=== PATIENT | male | born 1995 | race Hispanic/Latino ===

== ENCOUNTER 2016-03-22 03:33 | Emergency (ER) | payer OTHER ==
[~2016-03-22] VITALS: Ht 182.9 cm; Wt 95.7 kg
[~2016-03-22 03:33] MED LIST: ALBUTEROL 3 ML3 ML INH; ALBUTEROL0.63 MG/1 INH/SOL; AMOXICILLIN500 M2 PO; AMOXIL 875 MG875 MG PO; AUGMENTIN 875 M1 TAB PO; BLM PO; CLOTRIMAZOLE-BE15 GM TOP; HYDROCORTISONE59 ML TOP; IBUPROFEN600 M1 PO; IBUPROFEN800 M1 PO; LIORESAL 10MG T10 MG PO; LOTRIMIN CR1 %/45 GM TOP; LOTRISONE CREAM15 GM TOP; MOTRIN 600 MG600 MG PO; MOTRIN CHI100 MG/5 M PO; MOTRIN600 MG PO; NASONEX0.05 MG/Ac NAS; OXYCODONE-ACET1 EACH PO; PERCOCET 325 MG1 TA2 PO; PREDNISONE 20MG20 MG PO; PREDNISONE10 MG PO; PRILOSEC OTC20 MG PO; PROAIR HFA0.09 MG/Ac INH; PROAIR HFA8.5 GM INH; SYMBICORT 160/41 PUF INH; TESSALON PERLE100 MG PO; TRAMADOL50 MG PO
[2016-03-22 03:58] VITALS: BP 147/83
--- NOTE | 2016-03-22 04:57 | ED GENERAL ADULT ---
History of Present Illness General Chief Complaint: Skin Rash/ Abcess Stated Complaint: RASH TO GROIN AREA X'S 1 WK Source: patient Exam Limitations: no limitations Vital Signs & Intake/Output Vital Signs & Intake/Output Vital Signs Date Time Temp Pulse Resp B/P Pulse O2 O2 Flow FiO2 Ox Delivery Rate 03/22 0358 97.7 73 18 147/83 99 Room Air Allergies Coded Allergies: shrimp (Severe, ANAPHYLAXIS 01/12/16) cat dander (ITCHY AND WATERY EYES FROM CAT HAIR/DANDER 01/12/16) Reconcile Medications Albuterol Sulfate (Proair Hfa) 8.5 GM HFA.AER.AD 2-4 INH INH Q6P PRN ASTHMA Albuterol Sulfate 0.63 MG/3 ML VIAL.NEB 1 Vial INH/LD Q6P PRN ASTHMA Amoxicillin 500 MG CAPSULE 1 CAP PO TID ANTIBIOTIC, INFECTION (Reported) Clotrimazole (Lotrimin AF) 1 % CREAM..G. 1 RODRIGO TOP TID jock itch apply to affected area(s) x 7 days Clotrimazole/Betamethasone Dip (Clotrimazole-Betamethasone Crm) 1 %-0.05 % CREAM..G. 1 RODRIGO TOP BID PRN RASH apply to affected area(s) Hydrocortisone 2.5 % LOTION 1 RODRIGO TOP BID RASH apply to affected area(s) Ibuprofen 800 MG TABLET 1 TAB PO TID PRN PAIN/SWELLING Nystatin 1 BILLION UNIT POWDER.EA. 1 RODRIGO TOP TID JOCK ITCH X 7 DAYS Oxycodone HCl/Acetaminophen (Oxycodone-Acetaminophen 5-325) 5 MG-325 MG TABLET 1 TAB PO BIDP PRN PAIN (Reported) Triage Note: PT TO ED C/O RASH IN GROIN AREA FOR ONE WEEK. DENIES PAIN, DISCHARGE, FEVER AND CHILLS Triage Nurses Notes Reviewed? yes Onset: Gradual Duration: day(s):, waxing and waning Timing: recent history Injury Environment: home Severity: mild Modifying Factors: Worsens With: other (worse w/itching). Associated Symptoms: itching around penis HPI: 21-year-old gentleman presents with itching in groin area. He states that in the glans area of his penis he has a red itchy rash. He has no penile discharge or dysuria. He is otherwise well and has no other concerns. Past History Travel History Traveled to [place] past 21 day No Medical History Any Pertinent Medical History? see below for history Neurological: NONE EENT: NONE Cardiovascular: NONE Respiratory: asthma Gastrointestinal: NONE Hepatic: NONE Renal: NONE Musculoskeletal: NONE Psychiatric: NONE Endocrine: NONE Blood Disorders: NONE Cancer(s): NONE CAR REPAIRER HELPER/Reproductive: NONE Surgical History Surgical History: foot surgery Psychosocial History What is your primary language Arabic Tobacco Use: Never used Family History Hx Contributory? No Review of Systems Review of Systems Constitutional: Reports: no symptoms. EENTM: Reports: no symptoms. Respiratory: Reports: no symptoms. Cardiovascular: Reports: no symptoms. GI: Reports: no symptoms. Genitourinary: Reports: no symptoms. Musculoskeletal: Reports: no symptoms. Skin: Reports: no symptoms. Neurological/Psychological: Reports: no symptoms. Hematologic/Endocrine: Reports: no symptoms. Immunologic/Allergic: Reports: no symptoms. All Other Systems: Reviewed and Negative Physical Exam Physical Exam General Appearance: well developed/nourished, no apparent distress Head: atraumatic Eyes: Bilateral: normal appearance. Ears, Nose, Throat: normal pharynx Respiratory: normal breath sounds Cardiovascular: regular rate/rhythm Gastrointestinal: normal bowel sounds Extremities: normal inspection Neurologic/Psych: no motor/sensory deficits Comments: Genitalia exam reveals an erythematous rash beneath the foreskin of his penis consistent with a fungal infection. There are no ulcerations. No penile discharge. Core Measures ACS in differential dx? No CVA/TIA Diagnosis: No Severe Sepsis Present: No Septic Shock Present: No Progress Differential Diagnoses I considered the following diagnoses in my evaluation of the patient: Yeast infection versus other. I doubt STI's Plan of Care: See below Initial ED EKG: none Departure Departure Disposition: HOME OR SELF CARE Condition: Stable Clinical Impression Primary Impression: Jock itch Referrals: BRIAN SAM,ESTEPHANIA (PCP/Family) Departure Forms: Customer Survey General Discharge Information Prescriptions: Current Visit Scripts Clotrimazole (Lotrimin AF) 1 RODRIGO TOP TID #24 GM apply to affected area(s) x 7 days Nystatin 1 RODRIGO TOP TID #1 BOT X 7 DAYS Comments Discussed at length the patient. We'll give trial of Lotrimin and a statin. Critical Care Note Critical Care Note Critical Care Time: non-applicable
[2016-03-22] MEDS ORDERED: LOTRIMIN AF12 GM TOP (05:00)
[2016-03-22] MEDS ORDERED: NYSTATIN1 EAC8 TOP (05:00)
== END 2016-03-22 05:24 ==
LOC: ERH 03:33
DX: B35.6 Tinea cruris (principal)

== ENCOUNTER 2016-06-24 02:44 | Emergency (ER) | payer OTHER ==
[~2016-06-24 02:44] MED LIST changes: +LOTRIMIN AF12 GM TOP; +NYSTATIN1 EAC8 TOP
--- NOTE | 2016-06-24 03:15 | ED GI/GU/ABDOMINAL COMPLAINT ---
History of Present Illness General Chief Complaint: Male Genitourinary Problems Stated Complaint: " I HAVE A RASH ON MY GENITAL AREA" Source: patient Exam Limitations: no limitations Vital Signs & Intake/Output Vital Signs & Intake/Output . Allergies Coded Allergies: shrimp (Severe, ANAPHYLAXIS 06/24/16) cat dander (ITCHY AND WATERY EYES FROM CAT HAIR/DANDER 06/24/16) Reconcile Medications Clotrimazole (Lotrimin AF) 1 % CREAM..G. 1 RODRIGO TOP TID jock itch apply to affected area(s) x 7 days Clotrimazole/Betamethasone Dip (Clotrimazole-Betamethasone Crm) 1 %-0.05 % CREAM..G. 1 RODRIGO TOP BID PRN RASH apply to affected area(s) Hydrocortisone 2.5 % LOTION 1 RODRIGO TOP BID RASH apply to affected area(s) Ibuprofen 800 MG TABLET 1 TAB PO TID PRN PAIN/SWELLING Nystatin 1 BILLION UNIT POWDER.EA. 1 RODRIGO TOP TID JOCK ITCH X 7 DAYS Triage Nurses Notes Reviewed? yes Onset: Gradual Duration: day(s): Timing: recent history Quality/Severity: burning Location: penile shaft Radiation: no radiation Activities at Onset: "I go to the gym and work out.... My privates get sweaty." Sexually Active: Yes Last Time You Were Sexual: less than 2 months ago Modifying Factors: Worsens With: other (itching). Associated Symptoms: itchy HPI: 21-year-old gentleman health presents with itching and a red rash on his penile shaft. He states that he goes to the gym a lot and he gets sweaty in his groin area. He states in the past he had similar symptoms which improved with nystatin powder and Lotrimin cream. He states this is exactly the same as before. Is sexually active with a single partner. He has no penile discharge or urinary burning. He is otherwise well and has no other concerns. Past History Medical History Any Pertinent Medical History? 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 No Review of Systems Review of Systems Constitutional: Reports: no symptoms. EENTM: Reports: no symptoms. Respiratory: Reports: no symptoms. Cardiovascular: Reports: no symptoms. GI: Reports: no symptoms. Genitourinary: Reports: no symptoms. Musculoskeletal: Reports: no symptoms. Skin: Reports: no symptoms. Neurological/Psychological: Reports: no symptoms. Hematologic/Endocrine: Reports: no symptoms. Immunologic/Allergic: Reports: no symptoms. All Other Systems: Reviewed and Negative Physical Exam Physical Exam General Appearance: well developed/nourished, no apparent distress Head: atraumatic, normal appearance Eyes: Bilateral: normal appearance. Ears, Nose, Throat, Mouth: hearing grossly normal Neck: normal inspection Respiratory: normal breath sounds Gastrointestinal: normal bowel sounds, soft Male Genitals: erythematous rash on penile shaft w/ t. cruris Extremities: normal range of motion Neurologic/Psych: no motor/sensory deficits, awake, alert, oriented x 3 Core Measures ACS in differential dx? No Severe Sepsis Present: No Septic Shock Present: No Progress Differential Diagnosis: tinea cruris vs janes vs other. Plan of Care: gave rx for lotrimin and nystatin Initial ED EKG: none Departure Departure Disposition: HOME OR SELF CARE Condition: Stable Clinical Impression Primary Impression: Jock itch Referrals: ESTEPHANIA TORRES MD (PCP/Family) Departure Forms: Customer Survey General Discharge Information Prescriptions: Current Visit Scripts Clotrimazole (Lotrimin AF) 1 RODRIGO TOP TID #24 GM apply to affected area(s) x 7 days Nystatin 1 RODRIGO TOP TID #1 BOT X 7 DAYS
[2016-06-24] MEDS ORDERED: LOTRIMIN AF12 GM TOP (03:32)
[2016-06-24] MEDS ORDERED: NYSTATIN1 EAC8 TOP (03:32)
[2016-06-24 03:39] VITALS: BP 127/67
== END 2016-06-24 03:43 ==
LOC: ERH 02:44
DX: B35.6 Tinea cruris (principal)